=== PATIENT | female | born 1950 | race Caucasian/White ===

== ENCOUNTER 2021-11-28 21:51 | Emergency (ER) | payer MEDICARE, BC, SELFPAY ==
[2021-11-28 21:58] VITALS: BP 168/85; PULSE 70; RESP 18; TEMP 36.4; O2SAT 97; BMI 28.7
[2021-11-28 23:02] VITALS: BP 157/84; PULSE 66; RESP 18; O2SAT 98
--- NOTE | 2021-11-29 07:53 | ED_ITS ---
HPI - Eye Problem General Date Seen: 11/28/21 Chief complaint: Eye Problems Stated complaint: VISION PROBLEMS Time Seen by Provider: 11/28/21 22:22 Source: patient, family, RN notes reviewed and old records reviewed History of Present Illness HPI Narrative: 73-year-old woman presenting to the emergency department with concern of vision changes. She had been reading in started to note that seem to be difficult. Thought maybe she was seen double vision then realized she was seen a line across the top of the vision in both eyes look like chicken scratches. She closed her eyes and still saw at Total duration of these events was about 20 minutes. There was no actual loss of vision. She did feel tired and her eyes irritated. She had placed some [id number] eyedrops. Feels slightly nauseated now. Vision has returned to normal. has had recent imaging in the form of an MRI of her neck last week. She does endorse occasional headaches particularly if she does not take an antihistamine. Normally takes about half of an Jaida. Last seen for an eye appointment on October 18. Has had cataract extraction lens reimplantation bilaterally. Did not really have a headache with this event. No discoordinationThere was no trauma. There was never any sensory loss or weakness otherwise. Related Data Home Medications Medication Instructions Recorded Confirmed amlodipine 2.5 mg tablet mg 11/28/21 atenolol 25 mg tablet mg 11/28/21 Allergies Allergy/AdvReac Type Severity Reaction Status Date / Time ciprofloxacin [From Cipro] AdvReac Verified 11/28/21 22:10 Review of Systems Status of ROS: Reports: 6 or more systems reviewed and unremarkable except as noted in History and below [facility] Medical History (Updated 11/29/21 @ 00:01 by Harsha Wilson MD) Hypertension Surgical History (Updated 11/28/21 @ 22:59 by Kiah Schmitt RN) History of colectomy Social History Smoking Status: Never smoker Do you use any of these nicotine containing products: None Second hand tobacco smoke exposure: No How often do you have a drink containing alcohol: monthly or less How many standard drinks containing alcohol do you have on a typical day: 1 or 2 How often do you have six or more drinks on one occasion: Never AUDIT-C Alcohol total score: 1 Non-prescribed substance use: denies use service: No Exam Narrative: Exam Narrative: Ms. Stenglein is a pleasant NAD. Carefully groomed. Cranial nerves 2-12 are intact. Moving all extremities without difficulty, fluidly. Well perfused peripherally. Head is atraumatic. Neck is supple. Is breathing easily. Examination of the eyes shows pupils to be equal. Bright consistent with lens reimplantation. I do not see evidence of trauma. There is no scleral injection. No drainage. Funduscopic exam looks to show healthy vasculature though limited here in the emergency department. She has full visual villeda to confrontation and again, extra ocular movements are intact Const: Vital Signs, click to edit/add: Vital Signs - 24 hr 11/28/21 21:58 11/28/21 23:02 Temperature 97.6 F Pulse Rate [Pulse Oximeter] 70 66 Respiratory Rate 18 18 Blood Pressure [Ri ght Upper Arm] 168/85 H 157/84 H Pulse Oximetry 97 98 Documenting provider has reviewed patient's vital signs: yes Course Course Hospital Course: As it was not terribly late in the emergency department I did try to reach out to her eye clinic locally. Placed a couple of calls to arrange next step in cares. Unfortunately could not reach a provider. I suppose it is possible there was a TIA like event. And without MRI capabilities here tonight. I did hope to discuss further differential for what what Ms. Diane experienced. unusual for a migraine. She is, other than mild sense of nausea for which she does not want treatment, asymptomatic in the emergency department. Vital Signs Vital signs: Initial Vital Signs Temperature 97.6 F 11/28/21 21:58 Temperature Source Temporal Artery Scan 11/28/21 21:58 Pulse Rate 70 11/28/21 21:58 Pulse Rhythm 11/28/21 21:58 Respiratory Rate 18 11/28/21 21:58 Blood Pressure 168/85 H 11/28/21 21:58 Blood Pressure Mean 112 11/28/21 21:58 Blood Pressure Position Supine 11/28/21 21:58 Pulse Oximetry 97 11/28/21 21:58 Oxygen Delivery Method 11/28/21 21:58 Vital Signs Temperature 97.6 F 11/28/21 21:58 Pulse Rate 70 11/28/21 21:58 Respiratory Rate 18 11/28/21 21:58 Blood Pressure 168/85 H 11/28/21 21:58 Pulse Oximetry 97 11/28/21 21:58 Temperature 97.6 F 11/28/21 21:58 Pulse Rate 66 11/28/21 23:02 Respiratory Rate 18 11/28/21 23:02 Blood Pressure 157/84 H 11/28/21 23:02 Pulse Oximetry 98 11/28/21 23:02 MDM - Eye Problem MDM Narrative Medical decision making narrative: See above. Attempting to arrange followup visits since possible with [facility], her clinic. Medical Records Attestation: I reviewed the patient's medical records. Discharge Plan Discharge Clinical Impression: Alteration in vision Patient Disposition: Home w/ Parent or Adult Condition: Improved Additional Instructions: Please call to [facility] in the morning noting your visit here and our recommendations to be seen as soon as possible. Return to the emergency department for persistent recurrence of symptoms, loss of vision, severe headache, repeated vomiting, new and focal weakness. Rest and hydrate. Prescriptions: No Action atenolol 25 mg tablet 0RF Label Comments: TAKE 1 TABLET (25 MG) BY MOUTH ONCE DAILY. amlodipine 2.5 mg tablet 0RF Label Comments: TAKE ONE TABLET BY MOUTH EVERY DAY Follow Up/Referrals: Carline Melvin MD [Primary Care Provider] - Stand Alone Forms: [employer] Info Instructions
== END 2021-11-29 00:40 ==
PROVIDERS: Emergency Provider Family Medicine; PCP Family Medicine
DX: H53.8 Other visual disturbances (principal)
CPT/HCPCS: 99282; 99283

== ENCOUNTER 2021-12-08 11:03 | Outpatient (RCR) | payer MEDICARE, BC, SELFPAY | END 2022-02-14 11:35 | disposition home or self-care (01) | PROVIDERS: PCP Family Medicine; Visit Provider Family Medicine | DX: M25.561 Pain in right knee (principal); M72.2 Plantar fascial fibromatosis; M25.571 Pain in right ankle and joints of right foot; Z51.89 Encounter for other specified aftercare | CPT/HCPCS: 97110 ==

== ENCOUNTER 2022-05-26 07:59 | Outpatient (CLI) | payer MEDICARE, BC, SELFPAY ==
--- NOTE | 2022-05-26 08:15 | CRLHL7_ITS ---
For Patients: As a result of the Cures Act, medical imaging exams and procedure reports are released immediately into your electronic medical record. You may view this report before your referring provider. If you have questions, please contact your health care provider. INDICATION : Right thyroid nodule. TECHNIQUE : Ultrasound guided fine needle aspiration of thyroid nodule. Comparison: 05/23/2022 FINDINGS : PROCEDURE: After the informed consent and time-out, multiple fine needle aspirations were obtained from the thyroid nodule. Fine needle performed. 25 gauge needles were used. Lidocaine was used for local anesthesia. The preliminary cytology was adequate for interpretation. Real-time imaging was used for guidance and needle placement. Post imaging ultrasound demonstrates no immediate complication. IMPRESSION : Successful fine needle aspiration of right thyroid nodule. Dictated by Harsha Power MD @ 05/26/2022 9:39:15 AM (Electronically Signed)
== END 2022-05-26 08:00 | disposition home or self-care (01) ==
LOC: US 08:01
PROVIDERS: PCP Family Medicine; Visit Provider Family Medicine
DX: E04.1 Nontoxic single thyroid nodule (principal)
CPT/HCPCS: 10005; 88173

== ENCOUNTER 2022-06-12 14:44 | Emergency (ER) | payer MEDICARE, BC, SELFPAY ==
[2022-06-12 14:54] VITALS: BP 154/95; PULSE 92; TEMP 36.6; O2SAT 98; BMI 26.5
--- NOTE | 2022-06-12 16:31 | ED_ITS ---
HPI - General Adult General Chief complaint: Unspecified Complaint, Adult Stated complaint: High Blood Pressure Low Pulse Light headed Pain Time Seen by Provider: 06/12/22 16:01 History of Present Illness HPI narrative: This 71-year-old female comes in med the advice of the nurse line as she was reporting some low blood pressure and low heart rate. Currently she feels normal and she arrives with blood pressure and heart rate that is actually a bit elevated but yet acceptable and not worrisome. She states that she has generalized aches and pains over the last 6 months or more. She has been on atenolol for more than a decade but this was reduced about 6 months ago because her heart rate was too slow. She is still taking atenolol and is now taking amlodipine. She also reports a 15 lb weight loss that was not intentional. She has been to her primary physician who is managing these medications appropriately. She does bring a list of her heart rate and blood pressures over the past weeks and these are in acceptable ranges by my opinion. She has also seen a neurologist and has had her thyroid evaluated. Related Data Home Medications Medication Instructions Recorded Confirmed amlodipine 2.5 mg tablet 7.5 mg 11/28/21 atenolol 25 mg tablet 6.2 mg 11/28/21 diphenoxylate-atropine 2.5 1 tab PO DAILY 06/12/22 06/12/22 mg-0.025 mg tablet lorazepam 0.5 mg tablet mg 06/12/22 Allergies Allergy/AdvReac Type Severity Reaction Status Date / Time iodine Allergy Unknown Verified 06/12/22 14:58 ciprofloxacin [From Cipro] AdvReac Verified 11/28/21 22:10 Review of Systems Status of ROS: Reports: 10 or more systems reviewed and unremarkable except as noted in History and below Narrative: Constitutional: No fevers. 15 lb weight loss over the past 6 months which she states was not intentional. Eyes: No discharge. No vision changes. HENT: No congestion, no sore throat, no ear pain. Cardiovascular: No chest pain, no palpitations. Respiratory: No shortness of breath, no wheezes, no cough. Gastrointestinal: No abdominal pain, no vomiting, no diarrhea. Genitourinary: No dysuria, no hematuria. Musculoskeletal: Normal range of motion. Skin: No rashes, no pruritis. Neurological: No weakness, sensory change, speech change. She reports some lightheadedness feeling when standing in a position for quite a while such as working in the kitchen. Endo/Heme/Allergies: No bruising or bleeding. No polydipsia. Pysch: no suicidality, no anxiety, no insomnia. All other systems reviewed and are negative. [facility] Medical History (Updated 06/12/22 @ 16:38 by Riaz Newell MD) Hypertension Surgical History (Updated 11/28/21 @ 22:59 by Kiah Schmitt RN) History of colectomy Social History Smoking Status: Never smoker Do you use any of these nicotine containing products: None Second hand tobacco smoke exposure: No How often do you have a drink containing alcohol: monthly or less How many standard drinks containing alcohol do you have on a typical day: 1 or 2 How often do you have six or more drinks on one occasion: Never AUDIT-C Alcohol total score: 1 Non-prescribed substance use: denies use service: No Exam Narrative: Exam Narrative: Constitutional: Well-developed, well-nourished, no acute distress. HEENT: Normocephalic, atraumatic. Neck: Normal range of motion. Nontender. Supple. Heart: Regular. No murmurs. Normal rate. Intact distal pulses. Lungs: Clear to auscultation. No chest discomfort. No wheezes, rhonchi, or rales. Abdomen: Normal bowel sounds. Nontender. No rebound tenderness. Genitalia: Deferred. Back: No midline tenderness. Normal range of motion. Extremities: Normal range of motion. No injury. Skin: Intact. No rash. Warm. No erythema or pallor. Neurologic: No altered sensation. No weakness. Alert and oriented. Psychiatric: No suicidality. No anxiety or depression. No insomnia. Nursing notes and vitals signs are reviewed. Const: Vital Signs, click to edit/add: Vital Signs - 24 hr 06/12/22 14:54 Temperature 97.8 F Pulse Rate [Pulse Oximeter] 92 Blood Pressure [Ri ght Upper Arm] 154/95 H Pulse Oximetry 98 Oxygen Delivery Me thod Room Air Course Vital Signs Vital signs: Initial Vital Signs Temperature 97.8 F 06/12/22 14:54 Temperature Source Temporal Artery Scan 06/12/22 14:54 Pulse Rate 92 06/12/22 14:54 Blood Pressure 154/95 H 06/12/22 14:54 Blood Pressure Mean 114 06/12/22 14:54 Blood Pressure Position Sitting 06/12/22 14:54 Pulse Oximetry 98 06/12/22 14:54 Oxygen Delivery Method 06/12/22 14:54 Vital Signs Temperature 97.8 F 06/12/22 14:54 Pulse Rate 92 06/12/22 14:54 Blood Pressure 154/95 H 06/12/22 14:54 Pulse Oximetry 98 06/12/22 14:54 Oxygen Delivery Method 06/12/22 14:54 Temperature 97.8 F 06/12/22 14:54 Pulse Rate 92 06/12/22 14:54 Blood Pressure 154/95 H 06/12/22 14:54 Pulse Oximetry 98 06/12/22 14:54 Oxygen Delivery Method 06/12/22 14:54 Medical Decision Making MDM Narrative Medical decision making narrative: This patient comes in at the recommendation of the nurse phone line because of comments that she was making about her blood pressure. She continues to have normal vital signs and has no new complaints. I did discuss in significant detail current understanding of blood pressure and criteria and guidelines for management. It appears that she has good management of these matters by her primary physician in I stated that it is best for her to continue in this process. I did discuss options for labs and imaging studies and these were declined in a process of shared decision making. She is okay to return home to continue current plans. I encouraged ongoing recording of measurements of heart rate and blood pressure and recommended that she include the time of day when she is checking these results. ECG Data Attestation: I personally reviewed and interpreted this ECG as follows: Interpretation: Normal sinus rhythm. Rate is 66 beats per minute. There are no ST or T-wave abnormalities. Discharge Plan Discharge Clinical Impression: Hypertension Patient Disposition: Home, Self-Care Condition: Stable Additional Instructions: Continue current plans. Follow up with primary physician for ongoing management as needed and scheduled. Return if worsening. Prescriptions: No Action atenolol 25 mg tablet 6.2 mg Label Comments: TAKE 1 TABLET (25 MG) BY MOUTH ONCE DAILY. amlodipine 2.5 mg tablet 7.5 mg Label Comments: TAKE ONE TABLET BY MOUTH EVERY DAY lorazepam 0.5 mg tablet Label Comments: TAKE ONE-TWO TABLETS (0.5-1MG) BY MOUTH 30 MINUTES PRIOR TO PROCEDURE diphenoxylate-atropine 2.5-0.025 mg tablet 1 tab PO DAILY Follow Up/Referrals: Carline Melvin MD [Primary Care Provider] - Stand Alone Forms: [employer] Info Instructions
[2022-06-12 16:47] VITALS: BP 142/88; PULSE 63; RESP 16; O2SAT 95
== END 2022-06-12 17:03 | disposition home or self-care (01) ==
LOC: ED 16:53
PROVIDERS: Emergency Provider Emergency Medicine Emergency Medical Services; PCP Family Medicine
DX: I10 Essential (primary) hypertension (principal)
CPT/HCPCS: 93005; 99283; 99284

== ENCOUNTER 2022-06-21 14:00 | Outpatient (RCR) | payer MEDICARE, BC, SELFPAY | END 2022-11-14 14:36 | disposition home or self-care (01) | PROVIDERS: PCP Family Medicine; Visit Provider Family Medicine | DX: M50.10 Cervical disc disorder with radiculopathy, unspecified cervical region (principal); M47.812 Spondylosis without myelopathy or radiculopathy, cervical region; G57.93 Unspecified mononeuropathy of bilateral lower limbs; R20.0 Anesthesia of skin; R25.2 Cramp and spasm; Z51.89 Encounter for other specified aftercare | CPT/HCPCS: 97110; 97140; 97163; 97530 ==

== ENCOUNTER 2024-09-27 14:21 | Emergency (ER) | payer MEDICARE, BC, SELFPAY ==
[2024-09-27] VITALS (14 sets, daily range): BP systolic 157–181; BP diastolic 86–126; PULSE 73–92; RESP 18; TEMP 36.7; O2SAT 97–100; BMI 25.5
--- OUTSIDE RECORDS SUMMARY | 2024-09-27 14:27 | XMS_ITS | Clinical Summary ---
Author Organization [facility] Address [address] [place] [address] Care Team Providers Care Deep Fat Fry Cook Name Role Phone Unavailable Primary Care Provider Unavailabl e Source Comments Patient records contain information from all sites at [facility]. For routine questions regarding patient records, call [phone] during business hours, M-F 8:00 AM - 5:00 PM Central Time. Record requests for emergency care only can be directed to [phone] at any time.[facility] Allergies Active Allergy Reactions Criticality Noted Date Comments Cefuroxime Diarrhea 06/16/2008 Ciprofloxacin Other (see comments) High 06/27/2016 Tingling in arms & legs and mental confusion Doxycycline Other (see comments) Epinephrine Palpitations 06/15/2017 Metronidazole GI bleeding High 10/17/2017 Bleeding and nausea Iodides Hives (Reselect Reaction) 10/05/2000 Iodinated Contrast Media Hives (Reselect Reaction) High 10/17/2017 Mesalamine GI intolerance 03/14/2005 Methylprednisolone Other (see comments) 023 Irregular heartbeat. Metoprolol Succinate Hypertension 06/15/2017 Patient cannot have delayed release medication due to colectomy Prednisone Other (see comments) High 03/14/2005 Sulfasalazine Other (see comments) 03/03/2008 Medications psyllium husk (METAMUCIL ORAL) Take by mouth 2 (two) times a day. Powder 04/03/2011 Active loperamide (IMODIUM A-D) 2 mg tablet Take 1 tablet by mouth as needed. 03/09/2015 Active diphenoxylate-at ropine (LOMOTIL) 2.5-0.025 mg per tablet Take 1 tablet by mouth as needed. 06/06/2021 Active losartan (COZAAR) 50 mg tablet Take 50 mg by mouth 2 (two) times a day. 08/29/2022 Active amLODIPine (NORVASC) 2.5 mg tablet TAKE 1 TABLET (2.5 MG) BY MOUTH TWO TIMES DAILY. 10/13/2022 Active acetaminophen (TYLENOL) 500 mg tablet Take 2 tablets (1,000 mg total) by mouth every 6 (six) hours. Take 2 tablets up to four times daily for pain 100 tablet 10/31/2022 Active lactase (Lactaid) 9,000 Unit chewable tablet Chew 9,000 Units as needed. 05/28/2023 Active mesalamine (Canasa) 1,000 mg suppository Insert 1,000 mg into the rectum as needed. 07/27/2023 Active naltrexone (Depade) 50 mg tablet Take 50 mg by mouth as needed. 01/07/2024 Active levothyroxine 50 mcg tablet Take 50 mcg by mouth daily before morning meal. 11/27/2023 Active cyanocobalamin (vitamin B-12) 1,000 mcg tablet Take 1,000 mcg by mouth daily. 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 Tumor Thyroid Uncertain Behavior 10/09/2022 Ulcerative Colitis Unspecified Without Complicat ions 10/17/2017 Fibromyalgia 10/17/2017 Family History Von Willebrand Disease 06/24/2008 Social History Tobacco Use Types Packs/Day Years Used Date Smoking Tobacco: Never Passive Smoke Exposure: Never Smokeless Tobacco: Never Tobacco Cessation:Counseling Given: Not Answered Alcohol Use Standard Drinks/Week Comments Yes 3 (1 standard drink = 0.6 oz pur e alcohol) [facility] Utilities Answer Date Recorded In the past 12 months has e [employer], oil, or water [employer] threatened to shut off services in your home? No 01/19/2024 Humiliation, Afraid, Rape, and Kick questionnair e Answer Date Recorded Within the last year, have y ou been afraid of your partner or ex-partner? No 10/05/2022 Within the last year, have y ou been humiliated or emotionally abused in other ways by your partner or ex-partner? No Within the last year, have y ou been kicked, hit, slapped, or otherwise physically hurt by your partner or ex-partner? No 10/05/2022 Within the last year, have y ou been raped or forced to have any kind of sexual activity by your partner or ex-partner? No 10/05/2022 Social Connection and Isolat ion Panel [NHANES] Answer Date Recorded In a typical week, how many times do you talk on the phone with family, friends, or neighbors? More than three times a week 10/05/2022 How often do you get togethe r with friends or relatives? More than three times a week 10/05/2022 How often do you attend chur ch or orthodox services? Never 10/05/2022 Do you belong to any clubs o r organizations such as jehovah's witness groups, unions, fraternal or athletic groups, or school groups? Yes 10/05/2022 How often do you attend meet ings of the clubs or organizations you belong to? More than 4 times per year 10/05/2022 Are you , , di vorced, , never , or living with a partner? 10/05/2022 AUDIT-C Answer Date Recorded Q1: How often do you have a drink containing alc ohol? 2-3 times a week 10/05/2022 Q2: How many drinks containi ng alcohol do you have on a typical day when you are drinking? 1 or 2 10/05/2022 Q3: How often do you have si x or more drinks on one occasion? Never 10/05/2022 Overall Financial Resource Strain (CARDIA) Answe r Date Recorded How hard is it for you to pa y for the very basics like food, housing, medical care, and heating? Not hard at all 10/05/2022 [facility] of Occupat ional Health - Occupational Stress Questionnaire Answer Date Recorded Do you feel stress - tense, restless, nervous, or anxious, or unable to sleep at night because your mind is troubled all the time - these days? To some extent 10/05/2022 Exercise Vital Sign Answer Date Recorde d On average, how many days pe r week do you engage in moderate to strenuous exercise (like a brisk walk)? Patient declined On average, how many minutes do you engage in exercise at this level? Patient declined 01/19/2024 Hunger Vital Sign Answer Date Recorded Within the past 12 months, y ou worried that your food would run out before you got the money to buy more. Never true 01/19/20 Within the past 12 months, t he food you bought just didn't last and you didn't have money to get more. Never true 01/19/2024 PRAPARE - Transportation Answer Date Re corded In the past 12 months, has l ack of transportation kept you from medical appointments or from getting medications? No 12/27 In the past 12 months, has l ack of transportation kept you from meetings, work, or from getting things needed for daily living? No 01/19/2024 Nutrition Answer Date Recorded On average, how many serving s of fruits and vegetables do you eat per day (serving size is equal to 1 cup or approximately the size of a tennis ball)? 2-3 10/05/2022 Dental Answer Date Recorded Dental: Regular Dentist Yes 02/02/20 Employment Answer Date Recorded Employment status Retired 01/19/2024 Housing Stability Answer Date Recorded What is your living situation today? I have a [facility] place to live 01/19/2024 Education Answer Date Recorded What is the highest level of school you have completed or the highest degree you have received? Bachelor's degree (e.g., BA, AB, BS) 02/01/2022 Comments No Sex and Gender Information Value Date Recorded Sex Assigned at Female 04/10/2019 7:42 PM DIRECTOR OF PROCUREMENT Legal Sex Female 7:37 AM DIRECTOR OF PROCUREMENT Gender Identity Female 04/10/2019 7:42 PM DIRECTOR OF PROCUREMENT Sexual Orientation Straight 04/10/2019 7: 42 PM DIRECTOR OF PROCUREMENT Last Filed Vital Signs Vital Sign Reading Time Taken Comments Blood Pressure 148/85 01/22/2024 10:39 AM CDT Pulse 76 01/22/2024 10:39 AM CDT Temperature 36.5 C (97.7 F) 10/31/2022 1:13 PM CDT Respiratory Rate 14 10/31/2022 1:56 PM CDT Oxygen Saturation 98% 10/31/2022 1:56 PM CDT Inhaled Oxygen Concentration - - Weight 62.3 kg (137 lb 5.6 oz) 01/22/2024 10:39 AM CDT Height 156.9 cm (5' 1.77) 01/22/2024 10:39 AM C DT Body Mass Index 25.31 01/22/2024 10:39 AM CDT Plan of Treatment Health Maintenance Due Date Last Done Comments Bone Density Scan (Osteoporosis Screen) 1950 Hepatitis C Screening 1950 Zoster Vaccines (1 of 2) 2001 DTaP,Tdap,and Td Vaccines (2 - Td or Tdap) 10/23/2022 10/23/2012, 11/02/1997 COVID-19 Vaccine ( season) 2024 02/26/2023, 03/13/2022, 09/29/2021, Additional history exists Influenza Vaccine (#1) 2024 , 03/24/2022, 03/11/2021, Additional history exists Office Visit for Blood Pressure Check / Re-check 04/23/2024 01/22/2024 Depression Screening (Annual PHQ-2) 05/28/2024 Fall Risk Screen (Annual) 05/28/2024 Mammogram 06/08/2024 06/08/2023, 05/28, 05/25/2022, Additional history exists Creatinine Level (Kidney Function Test) 09/09/2024 09/10/2023, 10/20/2022, 10/09/2022, Additional history exists Potassium Level 09/09/2024 09/10/2023, 09/26, 10/09/2022, Additional history exists Sodium Level 09/09/2024 09/10/2023, 09/26, 10/09/2022, Additional history exists Thyroid Stimulating Hormone (TSH) test for thyroid function 01/21/2025 01/22/2024, 01/09/2024, 11/22/2023, Additional history exists Fasting Glucose for Diabetes Screening 11/21/2026 11/22/2023, 09/10/2023, 10/20/2022, Additional history exists Colonoscopy Discontinued 05/01/2005 Colonoscopy Discontinued 05/01/2005 Colorectal Cancer Screening Discontinued Colorectal Cancer Surveillance Discontinued Pneumococcal vaccine (50+ years) Completed 09/10/2018, 06/27/[address] Colonography Discontinued Cologuard Discontinued FIT Discontinued IPV Vaccines Aged Out No longer eligi ble based on patient's age to complete this topic Medical Devices Implanted Type Area Information Scientist Device Identifier Shelf Expiration Date Model / Serial / Lot Hardware E.G. Pins/Screws/Rods -10/26/2020 Implanted:2020 (Quantity not on file) Hardware e.g. pins/screws/ rods Right: Breast Description:Beads in right b reast. Josue [facility] Clp Hrzn Ti 6 Clp Sm Red - [id number] Implanted:Qty: 1 on 10/31/2022 by Hoa Heredia M.D. at [facility] Hardware e.g. pins/screws/ rods Right: [employer] [id number] / / Procedures Procedure Name Priority Date/Time Associated Diagnosis Comments THYROID-STIMULATING HORMONE-SENSITIVE (S-TSH) Routine 01/22/2024 7:50 AM CDT Malignant Neoplasm Of Thyroid Papillary (HCC) COMPREHENSIVE METABOLIC PANEL, S/P Routine 10/09/2022 9:08 AM CDT Von Willebrand Disease Type 1 (HCC) from Last 3 Months or Most Recently Relevant to Health Maintenance Results * S-TSH (Thyroid-Stimulating Hormone - Sensitive) (01/22/2024 7:50 AM CDT) TSH, Sensitive 1.5 0.3 - 4.2 mIU/L 01/22/2024 9:17 AM CDT DTL Blood (Blood, Venous) 01/22/2024 7:50 AM CDT 01/22/2024 8:24 AM CDT Nilda Polanco M.D. LAB BLOOD ADD-ON Final Result [facility] [address] [place] [address], [facility] DTL [facility] [address] [place] [address] * (ABNORMAL) Comprehensive Metabolic Panel (10/09/2022 9:08 AM CDT) Potassium, S 3.3(L) 3.6 - 5.2 mmol/L 10/09/2022 10:18 AM CDT DTL Sodium, S 133(L) 135 - 145 mmol/L 10/09/2022 10:18 AM CDT DTL Chloride, S 92(L) 98 - 107 mmol/L 10/09/2022 10:18 AM CDT DTL Bicarbonate, S 29 22 - 29 mmol/L 10/09/2022 10:18 AM CDT DTL Anion Gap 12 7 - 15 10/09/2022 10:18 AM CDT DTL BUN (Blood Urea Nitrogen), S 11 6 - 21 mg/dL 10/09/2022 10:18 AM CDT DTL Creatinine 0.96 0.59 - 1.04 mg/dL 10/09/2022 10:18 AM CDT DTL Estimated GFR (eGFR) 63 >=60 mL/min/BS A 10/09/2022 10:18 AM CDT DTL Comment: Estimated GFR calculated using the 2020 CKD_EPI creatinine equation. Calcium, Total, S 9.6 8.8 - 10.2 mg/dL 10/09/2022 10:18 AM CDT DTL Glucose, S 90 70 - 140 mg/dL 10/09/2022 10:18 AM CDT DTL Protein, Total, S 7.1 6.3 - 7.9 g/dL 10/09/2022 10:18 AM CDT DTL Albumin, S 4.6 3.5 - 5.0 g/dL 10/09/2022 10:18 AM CDT DTL Aspartate Aminotransferase (AST), S 32 8 - 43 U/L 10/09/2022 10:18 AM CDT DTL Alkaline Phosphatase, S 87 35 - 104 U/L 10/09/2022 10:18 AM CDT DTL Alanine Aminotransferase (ALT), S 33 7 - 45 U/L 10/09/2022 10:18 AM CDT DTL Bilirubin, Total, S 0.7 <=1.2 mg/dL 10/09/2022 10:18 AM CDT DTL Blood (Blood, Venous) 10/09/2022 9:08 AM CDT 10/09/2022 9:47 AM CDT Nilda Polanco M.D. LAB BLOOD ADD-ON Final Result [facility] [address] [place] [address], [facility] DTL [facility] [address] [place] [address] from Last 3 Months or Most Recently Relevant to Health Maintenance Insurance MEDICARE [facility] Advance Directives For more information, please contact: [phone] * Full Code (Latest Code Status on File) Date Activated Date Inactivated Comments 10/31/2022 9:00 AM 10/31/2022 4:55 PM Question Answer Comments Full Code: Not Discussed Due to: Patient not available
--- OUTSIDE RECORDS SUMMARY | 2024-09-27 14:27 | XMS_ITS | Clinical Summary ---
Author Organization [facility] Address [address] , [address] [place] [address] Phone Care Team Providers Care Screen Printing Supervisor Name Role Phone [facility] Unavailable Unava ilable Conditions or Problems Problem Name Problem Code Onset Date Status Entry Date Provider Comment Standard Description Annotate Low back pain 113229875 (SNOMED CT) Active Hussein Dietz MD Low back pain Leg pain, bilateral 86395585 (SNOMED CT) Active Hussein Dietz MD Pain in lower limb Medications No information available. Medications Administered No information available. Allergies, Adverse Reactions, Alerts No information available. Results Date Name Value Unit Range Flag Description Internal Other: Verbal Autho rization/Emergency Contact - OBS VERBAL_EMER DONE Verbal au thorization and emergency contact Internal Other: Authorizatio n - OBS [email or web address] Yes Authoriza tion: Release of Information - Authorize [facility] - Payment and Healthcare Operations ROIAUTHOTHER Yes Authoriz ation: Release of Information - Authorize Others/Insurance - Payment and Healthcare Operations HIECONSENT Yes Consent To Release information to the Health Information Exchange (HIE) [email or web address] Yes Authorizat ion: Authorization for [facility] to leave messages, voicemail, send text messages, send emails AUTHRELHCARE Yes Authoriz ation: Release/Retrieval of Information to/from Healthcare Facilities, Pharmacy Benefit Payers and Providers [email or web address] Yes Authoriz ation: Notice of privacy practices AUTHBENEFIT Yes Authoriza tion: Assignment of Benefits and Payment Agreement Plan of Care No information available. Procedures Code Procedure Name Date Entry Date CPT-24591 Nerve Conduction 13 or more studies 04/27 CPT-81226 EMG with NCS (5+ muscles) - 2 limbs 04/27 Vital Signs No information available. Immunizations No information available. Advance Directives No information available.
--- NOTE | 2024-09-27 14:45 | CRLHL7_ITS ---
For Patients: As a result of the 21st Century Cures Act, medical imaging exams and procedure reports are released immediately into your electronic medical record. You may view this report before your referring provider. If you have questions, please contact your health care provider. INDICATION: Dizziness, vertigo TECHNIQUE: Noncontrast axial CT of the head. Coronal and sagittal reformats. Bone and soft tissue algorithms. COMPARISON: None. FINDINGS: The ventricles and cortical sulci appear age-appropriate. No midline shift or mass effect. No acute intracranial hemorrhage or extra-axial fluid collection. Earl-white matter differentiation is grossly maintained. White matter attenuation is within normal limits. Intracranial vessels are unremarkable for technique. Partial empty sella configuration. The calvarium appears grossly intact. Paranasal sinuses and mastoid air cells are clear. Bilateral lens implants. IMPRESSION: 1. No CT evidence of acute intracranial abnormality. Please note that all CT scans at this facility use dose modulation, iterative reconstruction, and/or weight-based dosing when appropriate to reduce radiation dose to as low as reasonably achievable. Dictated by Felicia Rea MD @ 09/27/2024 3:30:06 PM (Electronically Signed)
--- OUTSIDE RECORDS SUMMARY | 2024-09-27 15:01 | XMS_ITS | Clinical Summary ---
Author Organization [facility] Address [address] [place] [address] Care Team Providers Care Underwriting Director Name Role Phone Unavailable Primary Care Provider Unavailabl e Source Comments Patient records contain information from all sites at [facility]. For routine questions regarding patient records, call [phone] during business hours, M-F 8:00 AM - 5:00 PM Central Time. Record requests for emergency care only can be directed to [phone] at any time.[facility] Allergies Active Allergy Reactions Criticality Noted Date [...] drink = 0.6 oz pur e alcohol) [facility] Utilities Answer Date Recorded In the past 12 months has e [employer], oil, or water [employer] threatened to shut off services in your [...] often do you attend chur ch or hoahaoism services? Never 10/05/2022 Do you belong to any clubs o r organizations such as taoism groups, unions, fraternal or athletic groups, or [...] and heating? Not hard at all 10/05/2022 [facility] of Occupat ional Health - Occupational Stress [...] your living situation today? I have a [facility] place to live 01/19/2024 Education Answer Date Recorded What is the highest level of school you have completed or the highest degree you have received? Bachelor's degree (e.g., BA, AB, BS) 02/01/2022 Comments No Sex and Gender Information Value Date Recorded Sex Assigned at Female 04/10/2019 7:42 PM INFECTION PREVENTIONIST Legal Sex Female 7:37 AM INFECTION PREVENTIONIST Gender Identity Female 04/10/2019 7:42 PM INFECTION PREVENTIONIST Sexual Orientation Straight 04/10/2019 7: 42 PM INFECTION PREVENTIONIST Last Filed Vital Signs Vital Sign Reading [...] this topic Medical Devices Implanted Type Area Games Manager Device Identifier Shelf Expiration Date Model / Serial / Lot Hardware E.G. Pins/Screws/Rods -10/26/2020 Implanted:2020 (Quantity not on file) Hardware e.g. pins/screws/ rods Right: Breast Description:Beads in right b reast. Josue [facility] Clp Hrzn Ti 6 Clp Sm Red - [id number] Implanted:Qty: 1 on 10/31/2022 by Hoa Heredia M.D. at [facility] Hardware e.g. pins/screws/ rods Right: [employer] [id number] / / Procedures Procedure Name Priority Date/Time [...] Polanco M.D. LAB BLOOD ADD-ON Final Result [facility] [address] [place] [address], [facility] DTL [facility] [address] [place] [address] * (ABNORMAL) Comprehensive Metabolic Panel (10/09/2022 9:08 [...] Polanco M.D. LAB BLOOD ADD-ON Final Result [facility] [address] [place] [address], [facility] DTL [facility] [address] [place] [address] from Last 3 Months or Most Recently Relevant to Health Maintenance Insurance MEDICARE [facility] Advance Directives For more information, please contact: [phone] * Full Code (Latest Code Status on File) Date Activated Date Inactivated Comments 10/31/2022 9:00 AM 10/31/2022 4:55 PM Question Answer Comments Full Code: Not Discussed Due to: Patient not available
--- NOTE | 2024-09-27 15:03 | ED_ITS ---
HPI - Dizziness General Date Seen: 09/27/24 Chief Complaint: Dizziness/Vertigo Stated Complaint: Possible dehydration Time Seen by Provider: 09/27/24 14:30 Source: patient, family, RN notes reviewed and old records reviewed Mode of arrival: ambulatory Limitations: no limitations History of Present Illness HPI Narrative: Patient is a 74-year-old lady who presents here for dizziness, she was doing yd work approximate 1 are going went to stand up and got dizzy, she felt like she had to sit down, she is concerned she may be dehydrated she has recently been started on sertraline 12.5 mg daily and over the last 10 days is been taking this on and off, with diarrhea. He has she does not feel like she is going to fall over, but does feel little bit like that she is on a ship, she denies any change in her physical acuity headache numbness and tingling or weakness in her hands or feet. She tells me she did feel a little bit off this morning, so the time of onset even though that got worse at on our go seems to be at least after she got up she went to bed feeling fine last night, she denies any alcohol use, no history of falls or trauma. She does tell me she has a history of tinnitus, and does wear hearing aid. MD elicited complaint: dizziness and lightheadedness Pertinent past history: Meniere's disease Onset (ago): hour(s) Timing: awoke with symptoms Severity: moderate Description: sense of movement Context: change in body position History of similar symptoms: Yes Exacerbating factors: movement/ambulation and change in body position Relieving factors: remaining still Associated symptoms: tinnitus Stroke scale total: 0 Related Data Home Medications ?Medication ?Instructions ?Recorded ?Confirmed amlodipine 2.5 mg tablet 7.5 mg 11/28/21 11/27/22 atenolol 25 mg tablet 6.2 mg 11/28/21 11/27/22 diphenoxylate-atropine 2.5 1 tab PO DAILY 06/12/22 11/27/22 mg-0.025 mg tablet lorazepam 0.5 mg tablet mg 06/12/22 11/27/22 Allergies Allergy/AdvReac Type Severity Reaction Status Date / Time iodine Allergy Unknown Verified 11/27/22 14:48 ciprofloxacin (From Cipro) AdvReac Verified 11/27/22 14:48 Review of Systems Status of ROS: Reports: 10 or more systems reviewed and unremarkable except as noted in History and below [facility] Medical History Hypertension ?I10 - Essential (primary) hypertension (ICD-10) Surgical History History of colectomy ?Z90.49 - Acquired absence of other specified parts of digestive tract (ICD- 10) Social History Smoking Status: Never smoker Do you use any of these nicotine containing products: None Second hand tobacco smoke exposure: No How often do you have a drink containing alcohol: 2-3 times a week How many standard drinks containing alcohol do you have on a typical day: 1 or 2 How often do you have six or more drinks on one occasion: Never AUDIT-C Alcohol total score: 3 Non-prescribed substance use: denies use service: No Exam Narrative: Exam Narrative: Patient is seen in room 6 she appears to be in no distress she is alert oriented x3 speak knows to me normally, nontoxic in no distress. GCS 15/15, her pupils equal round reactive to light, she tracks normally but she does have beating nystagmus in our laterally to the left. Her hearing aids are removed in her TMs are otherwise normal, her neck is supple carotid upstrokes are equal bilaterally with no evidence of any bruits, good strong pulses are notable JVP is flat cranial nerves 3-12 are otherwise normal. Mouth opening normal, her neck is supple, she is able to sit up for me on her own. Chest is good air entry bilaterally no wheezing crackles noted heart sounds are normal, no murmurs clicks or gallops, abdomen is soft there is no guarding no hepato splenomegaly, skin was no petechiae rashes, distal and proximal muscle strength is assessed and normal, she has no pronator drift. Fine motor movements fingers nose testing are normal. Const: Vital Signs, click to edit/add: Vital Signs - 24 hr 09/27/24 14:29 09/27/24 14:33 09/27/24 14:45 Temperature 98.0 F Pulse Rate 79 82 Pulse Rate [Pulse Oximeter] 79 Respiratory Rate 18 Blood Pressure Blood Pressure [Le ft Upper Arm] 181/89 H Pulse Oximetry 97 100 99 Oxygen Delivery Me thod Room Air 09/27/24 14:59 09/27/24 15:00 09/27/24 15:01 Temperature Pulse Rate 85 89 92 Pulse Rate [Pulse Oximeter] Respiratory Rate Blood Pressure 165/86 H 170/95 H Blood Pressure [Le ft Upper Arm] Pulse Oximetry 98 100 99 Oxygen Delivery Me thod 09/27/24 15:02 09/27/24 15:14 09/27/24 15:15 Temperature Pulse Rate 84 85 Pulse Rate [Pulse Oximeter] Respiratory Rate Blood Pressure 157/97 H 173/126 H Blood Pressure [Le ft Upper Arm] Pulse Oximetry 98 99 Oxygen Delivery Me thod 09/27/24 15:24 09/27/24 15:30 09/27/24 15:45 Temperature Pulse Rate 79 73 86 Pulse Rate [Pulse Oximeter] Respiratory Rate Blood Pressure 167/89 H Blood Pressure [Le ft Upper Arm] Pulse Oximetry 97 99 99 Oxygen Delivery Me thod 09/27/24 16:00 09/27/24 16:18 Temperature Pulse Rate 89 89 Pulse Rate [Pulse Oximeter] Respiratory Rate Blood Pressure Blood Pressure [Le ft Upper Arm] Pulse Oximetry 98 97 Oxygen Delivery Me thod Documenting provider has reviewed patient's vital signs: yes Course Course ED Course: Patient feels a little bit better, she admitted to me that she feels her heart racing and I took it it was 70 beats per minute, she wondered if she was going to become hypotensive, but clearly she has no orthostatic issues, on testing. I believe her case is most consistent with a vertigo likely secondary to BPPV, I am not getting a feeling this is related to stroke quite phenomenon, I do think a little bit Ativan with likely help her symptoms also 2. We did give her 0.5 mg, will do a road test if she tolerates this well a prescription for the Ativan and home and rest. Is suggested. We went over warning signs when she should re-presented. Vital Signs Vital signs: Initial Vital Signs Temperature 98.0 F 09/27/24 14:29 Temperature Source Temporal Artery Scan 09/27/24 14:29 Pulse Rate 79 09/27/24 14:29 Respiratory Rate 18 09/27/24 14:29 Blood Pressure 181/89 H 09/27/24 14:29 Blood Pressure Mean 119 H 09/27/24 14:29 Blood Pressure Position Supine 09/27/24 14:29 Pulse Oximetry 97 09/27/24 14:29 Oxygen Delivery Method Room Air 09/27/24 14:29 Vital Signs Temperature 98.0 F 09/27/24 14:29 Pulse Rate 79 09/27/24 14:29 Respiratory Rate 18 09/27/24 14:29 Blood Pressure 181/89 H 09/27/24 14:29 Pulse Oximetry 97 09/27/24 14:29 Oxygen Delivery Method Room Air 09/27/24 14:29 Temperature 98.0 F 09/27/24 14:29 Pulse Rate 89 09/27/24 16:18 Respiratory Rate 18 09/27/24 14:29 Blood Pressure 167/89 H 09/27/24 15:24 Pulse Oximetry 97 09/27/24 16:18 Oxygen Delivery Method Room Air 09/27/24 14:29 Medications Administered Medications: Discontinued Medications Generic Name Dose Route Start Last Admin Trade Name Freq PRN Reason Stop Dose Admin Sodium Chloride 1,000 mls @ 1,000 mls/hr 09/27/24 14:45 09/27/24 16:20 0.9 % Sodium Chloride 1000 Ml IV 09/27/24 15:44 Infused .Q1H CELESTINA Infusion Lorazepam 0.5 mg 09/27/24 16:22 09/27/24 16:40 Lorazepam 0.5 Mg Tablet PO 09/27/24 16:23 0.5 mg ONCE ONE Administration MDM - Dizziness MDM Narrative Medical decision making narrative: Life-threatening differential diagnosis considered include, CVA, other differential diagnosis include BPPV, labyrinthitis, Meniere's disease, vestibular neuronitis, migraine, multiple sclerosis, otitis media, viral syndrome as well as other etiologies I do think that this is unlikely to be a CVA, her time of onset is clearly last night when she went to bed as she was feeling a little bit off this morning. 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 Or COVID vaccination. Differential Diagnosis Differential diagnosis: Likely adverse reaction to drug, benign paroxysmal positional vertigo, orthostatic hypotension, vertebral basilar insufficiency, cerebrovascular accident, acute vestibular neuronitis and transient cerebral ischemia Medical Records Attestation: I reviewed the patient's medical records. Lab Data Attestation: I reviewed the patient's lab results. Labs: Lab Results 09/27/24 Range/Units 15:20 WBC 5.95 (4.50-11.00) K/uL RBC 4.66 (4.00-5.20) m/uL Hgb 13.9 (12.0-16.0) gm/dL Hct 40.7 (33.0-51.0) % MCV 87 (80-100) fL MCH 30 (26-34) pg MCHC 34 (32-36) gm/dL RDW Coeff of Tammi 12.4 (11.5-15.5) % Plt Count 210 (140-440) K/uL Neut % (Auto) 66.7 (42.0-72.0) % Lymph % (Auto) 25.9 (20-44) % Hardee % (Auto) 6.4 (0.0-11.0) % Eos % (Auto) 0.5 (0.0-7.0) % Baso % (Auto) 0.3 (0.0-3.0) % Neut # (Auto) 3.97 (1.7-7.0) K/uL Lymph # (Auto) 1.54 (0.90-2.90) K/uL Hardee # (Auto) 0.40 (0.00-0.90) K/UL Eos # (Auto) 0.03 (0.00-0.50) K/uL Baso # (Auto) 0.02 (0.00-0.30) K/uL Abs Immat Gran (auto) 0.01 (0.00-0.30) K/uL Imm/Tot Granulo (auto) 0.2 % Sodium 137 (135-149) mmol/L Potassium 3.9 (3.6-5.1) mmol/L Chloride 101 (96-114) mmol/L Carbon Dioxide 30 (20-32) mmol/L Anion Gap 6 L (7-15) mEq/L BUN 19 (7-30) mg/dL Creatinine 0.6 (0.5-1.5) mg/dL Estimated Creat Clear 37.81 Estimated GFR 95 ml/min Glucose 122 H (60-115) mg/dL Calcium 9.1 (8.4-10.6) mg/dL Magnesium 1.9 (1.5-2.6) mg/dL C-Reactive Protein 0.7 (0.5-1.0) mg/dL Imaging Data CT scan - head: Attestation: I have reviewed the pertinent imaging results. My impression: I see no acute findings on her head CT. By my review Radiologist's impression: [place] [address] Diagnostic Imaging Report Patient: Tangela Diane MR#: [id number] : 1950 Acct:[id number] Loc: ED Service Date: 09/27/[address]: Ordering Physician: Dutch Morataya M.D. Date of Service: 09/27/24 Procedure(s): CT head/brain wo con Accession Number(s): [id number] cc: Carline Melvin M.D.; Dutch Morataya M.D.~ For Patients: As a result of the Cures Act, medical imaging exams and procedure reports are released immediately into your electronic medical record. You may view this report before your referring provider. If you have questions, please contact your health care provider. INDICATION: Dizziness, vertigo TECHNIQUE: Noncontrast axial CT of the head. Coronal and sagittal reformats. Bone and soft tissue algorithms. COMPARISON: None. FINDINGS: The ventricles and cortical sulci appear age-appropriate. No midline shift or mass effect. No acute intracranial hemorrhage or extra-axial fluid collection. Earl-white matter differentiation is grossly maintained. White matter attenuation is within normal limits. Intracranial vessels are unremarkable for technique. Partial empty sella configuration. The calvarium appears grossly intact. Paranasal sinuses and mastoid air cells are clear. Bilateral lens implants. IMPRESSION: 1. No CT evidence of acute intracranial abnormality. Please note that all CT scans at this facility use dose modulation, iterative reconstruction, and/or weight-based dosing when appropriate to reduce radiation dose to as low as reasonably achievable. Dictated by Felicia Rea MD @ 09/27/2024 3:30:06 PM (Electronically Signed) ECG Data Attestation: I personally reviewed and interpreted this ECG as follows: ECG interpretation date: 09/27/24 Prior ECG tracings: available for review Interpretation: EKG shows normal sinus rhythm, with mild sinus arrhythmia noted. QRS is 68 QT and QTC are normal. He ST wave flattening with inversion noted in V1 and V2, consistent with left lateral deviation , but compared to old EKG 06/12/2022 no acute changes Discharge Plan Discharge Clinical Impression: Vertigo Patient Disposition: Home w/ Parent or Adult Condition: Stable Instructions: Vertigo (DC), Dizziness (ED) Additional Instructions: Your orthostatics are blood pressure check were normal. I do suspect that you have a little bit of vertigo from bending over, I do not think this is same is post COVID. And you may benefit from learning does physical therapy techniques. I did give you a small supply of Ativan you can use for a couple days. We do not like to use this in the intermediate teacher as it can be addictive. Be careful kids this will make you tired, he should drive while on this medication or combine it with alcohol. Be due develop any weakness numbness in your extremities, slurred speech or facial inequality then you should come back and be seen. Discharge medications lorazepam p.o. b.i.d. p.r.n. times 10 tablets instymeds Discharge Diet: Regular Prescriptions: No Action atenolol 25 mg tablet 6.2 mg Patient Comments: TAKE 1 TABLET (25 MG) BY MOUTH ONCE DAILY. amlodipine 2.5 mg tablet 7.5 mg Patient Comments: TAKE ONE TABLET BY MOUTH EVERY DAY lorazepam 0.5 mg tablet Patient Comments: TAKE ONE-TWO TABLETS (0.5-1MG) BY MOUTH 30 MINUTES PRIOR TO PROCEDURE diphenoxylate-atropine 2.5-0.025 mg tablet 1 tab PO DAILY Follow Up/Referrals: Carline Melvin MD [Referring] - Stand Alone Forms: [employer] Info Instructions
[2024-09-27] MEDS: 0.9 % SODIUM CHLORIDE 1000 ml 1,000 ML IV (15:15)
[2024-09-27 15:38] LABS: Chloride* 101 mmol/L (96-114); Potassium* 3.9 mmol/L (3.6-5.1); Sodium* 137 mmol/L (135-149)
[2024-09-27 15:41] LABS: Basophils Absolute Auto 0.02 K/uL (0.00-0.30); Basophils Percent Auto 0.3 % (0.0-3.0); Blood Urea Nitrogen* 19 mg/dL (7-30); Creatinine* 0.6 mg/dL (0.5-1.5); Eosinophils Absolute Auto 0.03 K/uL (0.00-0.50); Eosinophils Percent Auto 0.5 % (0.0-7.0); Est. Creatinine Clearance* 37.81; Estimated Glomerular Filt Rate 95 ml/min; Hematocrit 40.7 % (33.0-51.0); Hemoglobin* 13.9 gm/dL (12.0-16.0); Immature Granulocytes Abs Auto 0.01 K/uL (0.00-0.30); Immature Granulocytes Pct Auto 0.2 %; Lymphocytes Absolute Auto 1.54 K/uL (0.90-2.90); Lymphocytes Percent Auto 25.9 % (20-44); Mean Corpuscular HGB Conc 34 gm/dL (32-36); Mean Corpuscular Hemoglobin 30 pg (26-34); Mean Corpuscular Volume 87 fL (80-100); Monocytes Percent Auto 6.4 % (0.0-11.0); Neutrophils Absolute Auto 3.97 K/uL (1.7-7.0); Neutrophils Percent Auto 66.7 % (42.0-72.0); Platelet Count* 210 K/uL (140-440); RDW Coefficient of Variation % 12.4 % (11.5-15.5); Red Blood Count 4.66 m/uL (4.00-5.20); White Blood Count* 5.95 K/uL (4.50-11.00)
[2024-09-27 15:42] LABS: Anion Gap 6 mEq/L (7-15); Calcium* 9.1 mg/dL (8.4-10.6); Carbon Dioxide* 30 mmol/L (20-32); Glucose* 122 mg/dL (60-115); Magnesium* 1.9 mg/dL (1.5-2.6); Slide Review Reflex No
[2024-09-27 15:44] LABS: C Reactive Protein* 0.7 mg/dL (0.5-1.0)
[2024-09-27] MEDS: LORazepam 0.5 MG TABLET PO (16:40)
== END 2024-09-27 16:47 | disposition home or self-care (01) ==
PROVIDERS: Emergency Provider Family Medicine; PCP Family Medicine
DX: R42 Dizziness and giddiness (principal)
CPT/HCPCS: 36415; 70450; 80048; 83735; 85025; 86140; 93005; 99284; 99285; A9270; J7030

== ENCOUNTER 2024-12-30 11:15 | Outpatient (RCR) | payer MEDICARE, BC, SELFPAY | END 2025-04-29 23:59 | disposition home or self-care (01) | PROVIDERS: PCP Family Medicine; Visit Provider Family Medicine | DX: M54.2 Cervicalgia (principal); Z51.89 Encounter for other specified aftercare | CPT/HCPCS: 97110; 97140; 97162; 97535 ==